=== PATIENT | female | born 1965 ===

== ENCOUNTER 2016-08-29 22:33 | Emergency (ER) | payer MEDICAID ==
[2016-08-29 22:36] VITALS: BP 164/114; PULSE 94; RESP 18; TEMP 98.1; O2SAT 97
--- NOTE | 2016-08-29 22:54 | ED PDOC ---
HPI: General Adult Time Seen by Provider: 08/29/16 22:36 Chief Complaint (Nursing): Abdominal Pain Chief Complaint (Provider): right side pain History Per: Patient History/Exam Limitations: no limitations Onset/Duration Of Symptoms: Days (1 week) Current Symptoms Are (Timing): Still Present Additional History Per: Patient Additional Complaint(s): 50 y/o female history of depression presents with right-sided pain x 1 week. Patient notes pain to start above right side of stomach, and travel to right side of back. Pain worse with movement. Denies fever, nausea/vomiting, chest pain, shortness of breath, palpitations, changes in bowel movements, recent travel. Patient hysterically crying; states she is depressed because she misses her daughter. Denies suicidal/homicidal ideations. Past Medical History Reviewed: Historical Data, Nursing Documentation, Vital Signs Vital Signs: Last Vital Signs Temp 98.1 F 08/29/16 22:34 Pulse 94 H 08/29/16 22:34 Resp 18 08/29/16 22:34 BP 164/114 H 08/29/16 22:34 Pulse Ox 97 08/29/16 22:55 - Medical History PMH: Depression - Surgical History Surgical History: No Surg Hx - Family History Family History: States: Unknown Family Hx - Living Arrangements Living Arrangements: Alone (homeless; staying at [facility]) - Allergies Allergies/Adverse Reactions: Allergies Allergy/AdvReac Type Severity Reaction Status Date / Time No Known Allergies Allergy Verified 08/29/16 22:34 Review of Systems ROS Statement: Except As Marked, All Systems Reviewed And Found Negative Musculoskeletal: Positive for: Other (rib pain) Psych: Positive for: Depression Physical Exam - Reviewed Nursing Documentation Reviewed: Yes Vital Signs Reviewed: Yes - Physical Exam Appears: Positive for: Well, Non-toxic, In Acute Distress (crying) Head Exam: Positive for: ATRAUMATIC, NORMAL INSPECTION, NORMOCEPHALIC ENT: Positive for: Normal ENT Inspection Cardiovascular/Chest: Positive for: Regular Rate, Rhythm. Negative for: Chest Non Tender (tender to palpation right anterior/lateral ribs) Respiratory: Positive for: Normal Breath Sounds Gastrointestinal/Abdominal: Positive for: Bowel Sounds, Soft, Tenderness (RUQ, mild) Back: Positive for: Normal Inspection, Muscle Spasm (right tspine paraspinals) Extremity: Positive for: Normal ROM Neurologic/Psych: Positive for: Alert, Oriented - ECG O2 Sat by Pulse Oximetry: 97 - Progress ED Course And Treament: labs, urine, ekg, IV toradol, crisis eval Upon nurse entering exam room to draw labs/administer pain medication; patient agitated, stating "I just came for pain medication". Patient then proceeded to get dressed and walk out of ED. Patient left ED before treatment complete. Disposition - Clinical Impression Clinical Impression: Rib pain on right side - Patient ED Disposition Is Patient to be Admitted: No - Disposition Disposition: Left W/O Treatment Disposition Time: 23:10 Condition: STABLE
== END 2016-08-29 23:10 | disposition left against medical advice (07) ==
LOC: H.ER 22:33
DX: R07.81 Pleurodynia (principal); Z86.59 Personal history of other mental and behavioral disorders

== ENCOUNTER 2016-08-30 00:01 | Emergency (ER) | payer MEDICAID ==
[2016-08-30 00:15] VITALS: BP 125/80; PULSE 95; RESP 16; TEMP 97.5; O2SAT 100
--- NOTE | 2016-08-30 00:27 | ED PDOC ---
HPI: General Adult Time Seen by Provider: 08/30/16 00:21 Chief Complaint (Nursing): Abdominal Pain Chief Complaint (Provider): right rib pain History Per: Patient History/Exam Limitations: no limitations Onset/Duration Of Symptoms: Days (1 week) Current Symptoms Are (Timing): Still Present Additional History Per: Patient Additional Complaint(s): 50 y/o female history of depression presents with right-sided pain x 1 week. Patient notes pain to start above right side of stomach, and travel to right side of back. Pain worse with movement. [facility]. Denies fever, nausea/vomiting, cough, chest pain, shortness of breath, palpitations, changes in bowel movements, recent travel. Past Medical History Reviewed: Historical Data, Nursing Documentation, Vital Signs Vital Signs: Last Vital Signs Temp 97.5 F L 08/30/16 00:13 Pulse 95 H 08/30/16 00:13 Resp 16 08/30/16 00:13 BP 125/80 08/30/16 00:13 Pulse Ox 100 08/30/16 00:27 - Medical History PMH: Bipolar Disorder, Depression - Family History Family History: States: Unknown Family Hx - Home Medications Home Medications: Ambulatory Orders Medication Instructions Recorded Cyclobenzaprine [Cyclobenzaprine 10 mg PO BID PRN #10 tab 08/30/16 HCl] Ferrous Sulfate 325 mg PO DAILY #30 tablet 08/30/16 Naproxen [Naprosyn] 500 mg PO Q12 PRN #20 tablet 08/30/16 - Allergies Allergies/Adverse Reactions: Allergies Allergy/AdvReac Type Severity Reaction Status Date / Time No Known Allergies Allergy Verified 08/29/16 22:34 Review of Systems ROS Statement: Except As Marked, All Systems Reviewed And Found Negative Musculoskeletal: Positive for: Back Pain (rib pain) Physical Exam - Reviewed Nursing Documentation Reviewed: Yes Vital Signs Reviewed: Yes - Physical Exam Appears: Positive for: Well, Non-toxic, No Acute Distress Head Exam: Positive for: ATRAUMATIC, NORMAL INSPECTION, NORMOCEPHALIC Skin: Positive for: Normal Color Eye Exam: Positive for: Normal appearance ENT: Positive for: Normal ENT Inspection Cardiovascular/Chest: Positive for: Regular Rate, Rhythm. Negative for: Chest Non Tender (tender to palpation right ribs) Respiratory: Positive for: Normal Breath Sounds Gastrointestinal/Abdominal: Positive for: Bowel Sounds, Soft, Tenderness (ruq; mild. Neg Cornejo's) Back: Positive for: Normal Inspection Extremity: Positive for: Normal ROM Neurologic/Psych: Positive for: Alert, Oriented - Laboratory Results Result Diagrams: 08/30/16 00:54 08/30/16 00:54 - ECG O2 Sat by Pulse Oximetry: 100 - Other Rad right ribs with chest X-Ray: Viewed By Me X-Ray Interpretation: no acute findings - Progress ED Course And Treament: labs, chest xray, urine, toradol, flexeril PO Patient educated on findings, discharged with rx Naproxen, Flexeril, Iron Advised follow up PMD for eval of elevated WBCs/anemia. Rest, warm compresses/ice to affected area. Return to ED for worsening/concerning symptoms. Disposition - Clinical Impression Clinical Impression: Rib pain on right side, Anemia, Leukocytosis Counseled Patient/Family Regarding: Studies Performed, Diagnosis, Need For Followup, Rx Given - Disposition Referrals: [facility] [Outside] Disposition: Routine/Home Disposition Time: 02:45 Condition: IMPROVED Prescriptions: Ferrous Sulfate 325 mg PO DAILY #30 tablet Cyclobenzaprine [Cyclobenzaprine HCl] 10 mg PO BID PRN #10 tab PRN Reason: Muscle Spasm Naproxen [Naprosyn] 500 mg PO Q12 PRN #20 tablet PRN Reason: Pain, Moderate (4-7) Instructions: Muscle Strain (ED), Leukocytosis (ED), Anemia (ED)
[2016-08-30 00:59] LABS: BASO # 0.1 K/uL (0.0-0.2); BASO % 0.8 % (0.0-2.0); EOS # 0.2 K/uL (0.0-0.7); EOS % 1.3 % (0.0-4.0); HEMATOCRIT 28.9 % (34.0-47.0); LYMPH # 3.9 K/uL (1.0-4.3); LYMPH % 24.7 % (20.0-40.0); MEAN CELL VOLUME 64.7 fl (81.0-99.0); MEAN CORPUSCULAR HEMOGLOBIN 19.4 pg (27.0-31.0); MEAN CORPUSCULAR HGB CONC 29.9 g/dL (33.0-37.0); MEAN PLATELET VOLUME 7.7 fl (7.2-11.7); MONO # 1.2 K/uL (0.0-0.8); MONO % 7.8 % (0.0-10.0); NEUT # 10.5 K/uL (1.8-7.0); NEUT % 65.4 % (50.0-75.0); NRBC % 0.1 % (0.0-0.0); RED CELL DISTRIBUTION WIDTH 18.2 % (11.5-14.5)
[2016-08-30 01:15] LABS: ALB/GLOB RATIO 1.1 (1.0-2.1); ALKALINE PHOSPHATASE 71 U/L (38-126); ALT/SGPT 23 U/L (9-52); AST/SGOT 18 U/L (14-36); BILIRUBIN,TOTAL 0.3 mg/dl (0.2-1.3); BLOOD UREA NITROGEN 10 mg/dl (7-17); CARBON DIOXIDE 22 mmol/L (22-30); CHLORIDE 104 mmol/L (98-107); GFR AFRICAN-AMERICAN > 60; GLUCOSE,RANDOM 96 mg/dL (65-105); LIPASE 79 U/L (23-300); POTASSIUM 3.4 MMOL/L (3.6-5.0); SODIUM 133 mmol/l (132-148); TOTAL PROTEIN 6.5 G/DL (6.3-8.2)
--- NOTE | 2016-08-30 16:19 | RAD ---
PROCEDURE: Radiographs of the Chest and Right Ribs. HISTORY: right rib pain COMPARISON: None available. TECHNIQUE: Frontal radiograph of the chest and multiple oblique radiographs of the right ribs were obtained. FINDINGS: RIGHT RIBS: No fracture or focal lesion visualized. LUNGS: Clear. PLEURA: No pneumothorax or pleural fluid. CARDIOVASCULAR: Normal sized heart. No pulmonary vascular congestion. OTHER FINDINGS: None. IMPRESSION: Unremarkable radiographs of the chest and right ribs. No right rib fracture.
== END 2016-08-30 06:26 | disposition home or self-care (01) ==
LOC: H.ER 00:01
DX: R07.81 Pleurodynia (principal); D72.829 Elevated white blood cell count, unspecified; D64.9 Anemia, unspecified; F31.9 Bipolar disorder, unspecified; R10.9 Unspecified abdominal pain

== ENCOUNTER 2016-09-03 02:43 | Emergency (ER) | payer MEDICAID ==
--- NOTE | 2016-09-03 03:10 | ED PDOC ---
HPI: General Adult Time Seen by Provider: 09/03/16 02:48 Chief Complaint (Nursing): Medical Clearance Chief Complaint (Provider): Wants a place to sleep History Per: Patient History/Exam Limitations: no limitations Onset/Duration Of Symptoms: Days Have you had recent travel within the past 21 days to any of the following countries: [place], [place], [place] or [place]?: No Additional Complaint(s): Pt states she came to the ER and states she is here because she is homeless. Denies SI/HI. Pt states she had history of back pain and takes naproxen. Past Medical History Reviewed: Historical Data, Nursing Documentation, Vital Signs - Medical History PMH: Bipolar Disorder, Depression - Surgical History Surgical History: No Surg Hx - Family History Family History: States: Unknown Family Hx - Living Arrangements Living Arrangements: With Family - Home Medications Home Medications: Ambulatory Orders Medication Instructions Recorded Cyclobenzaprine [Cyclobenzaprine 10 mg PO BID PRN #10 tab 08/30/16 HCl] Ferrous Sulfate 325 mg PO DAILY #30 tablet 08/30/16 Naproxen [Naprosyn] 500 mg PO Q12 PRN #20 tablet 08/30/16 - Allergies Allergies/Adverse Reactions: Allergies Allergy/AdvReac Type Severity Reaction Status Date / Time No Known Allergies Allergy Verified 08/29/16 22:34 Review of Systems ROS Statement: Except As Marked, All Systems Reviewed And Found Negative Physical Exam - Reviewed Nursing Documentation Reviewed: Yes Vital Signs Reviewed: Yes - Physical Exam Appears: Positive for: Well, Non-toxic, No Acute Distress Head Exam: Positive for: ATRAUMATIC, NORMAL INSPECTION, NORMOCEPHALIC Skin: Positive for: Normal Color, Warm, DRY Eye Exam: Positive for: EOMI, Normal appearance, PERRL ENT: Positive for: Normal ENT Inspection Neck: Positive for: Normal, Painless ROM Cardiovascular/Chest: Positive for: Regular Rate, Rhythm Respiratory: Positive for: CNT, Normal Breath Sounds Gastrointestinal/Abdominal: Positive for: Normal Exam, Bowel Sounds, Soft Back: Positive for: Normal Inspection Extremity: Positive for: Normal ROM Neurologic/Psych: Positive for: Alert, Oriented Medical Decision Making Medical Decision Making: Pt given a list a shelters on discharge. Disposition - Clinical Impression Clinical Impression: Homeless - Patient ED Disposition Is Patient to be Admitted: No Counseled Patient/Family Regarding: Diagnosis, Need For Followup - Disposition Referrals: [facility] [place] [Outside] Disposition: Routine/Home Disposition Time: 02:54 Condition: GOOD
[2016-09-03 03:21] VITALS: RESP 16
[2016-09-03 07:04] VITALS: BP 122/78; PULSE 86; TEMP 98.2; O2SAT 98
== END 2016-09-03 06:05 | disposition home or self-care (01) ==
LOC: H.ER 02:43
DX: F31.9 Bipolar disorder, unspecified (principal); Z59.0 Homelessness